=== PATIENT | female | born 1995 | race Two or more races ===

== ENCOUNTER → 2024-03-18 | Emergency (ER) | payer OTHER ==
[~2024-03-18] VITALS: Ht 152.4 cm; Wt 77.1 kg
[~2024-03-18] MED LIST: ATARAX25 MG PO; CEFTRIAXONE SODIUM 1,000 MG VIAL IV ONE; CEFTRIAXONE SODIUM 1,000 MG VIAL ONE; CEPHALEXIN500 MG PO; KEFLEX500 MG PO; KETOROLAC TROMETHAMINE 30 MG VIAL IV ONE; KETOROLAC TROMETHAMINE 60 MG VIAL IM ONE; PYRIDIUM100 M1 PO; ULTRACET PO; ZYRTEC10 M3 PO
[2024-03-18 21:41] LABS: HEMATOCRIT 41.4 % (36.0-45.00); HEMOGLOBIN 13.9 g/dL (12.0-15.00); MEAN CELL VOLUME 85.5 fL (80.00-100.00); MEAN CORPUSCULAR HEMOGLOBIN 28.6 pg (27.00-32.0); MEAN CORPUSCULAR HGB CONC 33.5 g/dl (32.0-36.0); PLATELET COUNT 489 K/uL (150-450); RED BLOOD COUNT 4.84 M/uL (4.00-6.00); RED CELL DISTRIBUTION WIDTH 14.1 % (11.5-14.5)
[2024-03-18 21:41] LABS: URINE APPEARANCE Cloudy; URINE BILIRRUBIN Negative (NEGATIVE); URINE BLOOD Moderate; URINE COLOR Yellow; URINE GLUCOSE Negative (NEGATIVE); URINE KETONE Negative (NEGATIVE); URINE LEUKOCYTE Large; URINE NITRATE Negative; URINE PROTEIN 30 (NEGATIVE); URINE UROBILINOGEN 0.2 E.U./dl
[2024-03-18 21:44] LABS: URINE BACTERIA 1324.3 uL (0.0-1933); URINE EPITHELIAL CELLS 4.1 uL (0.0-38.8); URINE RBC 93.8 uL (0.0-20.8); URINE WBC 1932.2 uL (0.0-23.2)
[2024-03-18 22:00] LABS: URINE CAST 0.58 uL (0.0-1.40)
[2024-03-18 22:09] LABS: ALBUMIN 3.6 gm/dL (3.4-5.0); BILIRUBIN TOTAL 0.84 mg/dL (0.3-1.2); CREATININE SERUM 0.66 mg/dL (0.55-1.02); GFR 105.88; GLOBULINA 4.4 G/DL (2.4-3.5); POTASSIUM 3.98 mEq/L (3.5-5.1)
== END | disposition home or self-care (01) ==
LOC: ER 19:50
PROVIDERS: General Practice
DX: N39.0 Urinary tract infection, site not specified (principal); R30.0 Dysuria